=== PATIENT | female | born 1995 | race Caucasian/White ===

== ENCOUNTER 2020-05-13 12:54 | Emergency (ER) | payer OTHER ==
[~2020-05-13] VITALS: Ht 162.6 cm; Wt 59.0 kg
[2020-05-13 12:55] VITALS: BP 120/74; Ht 162.6 cm; Wt 59.0 kg
== END 2020-05-13 14:04 | disposition home or self-care (01) ==
LOC: ED 12:54
DX: S61.203A Unspecified open wound of left middle finger without damage to nail, initial encounter (principal); W46.1XXA Contact with contaminated hypodermic needle, initial encounter; Y93.89 Activity, other specified; Y92.89 Other specified places as the place of occurrence of the external cause; Y99.8 Other external cause status